=== PATIENT | male | born 1945 | race Caucasian/White ===

== ENCOUNTER 2017-12-28 13:37 | Outpatient (REF) | payer OTHER, SELFPAY ==
[2017-12-28 21:03] LABS: HCT 44.5 % (40.0-50.0); HGB 15.5 g/dL (13.5-17.5); Mean Corp. HGB Concentration 34.8 g/dL (32.0-36.0); Mean Corpuscular Hemoglobin 31.3 pg (27.0-33.0); Mean Corpuscular Volume 89.7 fL (80-95); Mean Platelet Volume 10.9 fL (8.0-11.0); Platelet Count 310 x1000/uL (130-400); RBC 4.96 m/cumm (4.50-6.00); RBC Distribution Width 13.9 % (11.8-14.1); White Blood Cell Count 9.33 k/cumm (4.4-10.8)
[2017-12-28 21:27] LABS: ALT 23 U/L (12-78); AST 25 U/L (15-37); Albumin 3.6 g/dL (3.4-5.0); Alkaline Phosphatase 67 U/L (46-116); Anion Gap 6.8 mmol/L (3-11); BUN 24 mg/dL (7-18); Bilirubin, Total 0.6 mg/dL (0.2-1.0); CO2 27.2 mmol/L (21.0-32.0); CREATININE 1.45 mg/dL (0.70-1.30); Calcium 8.7 mg/dL (8.5-10.1); Chloride 105 mmol/L (98-107); Cholesterol 158 mg/dL (50-200); Estimated GFR 47.98 (mL/min/1.73m2); Glucose 89 mg/dL (70-100); HDL Cholesterol 56 mg/dL (40-60); LDL CHOLESTEROL 92 mg/dL (<100); Potassium 4.3 mmol/L (3.5-5.1); Sodium 139 mmol/L (136-145); TSH 1.01 uIU/mL (0.358-3.74); Triglyceride 93 mg/dL (30-150)
[2017-12-28 21:36] LABS: Bilirubin, Direct 0.14 mg/dL (0.00-0.20)
== END 2017-12-28 13:38 ==
LOC: NCHCN 13:37
PROVIDERS: PCP Family Medicine; Visit Provider Family Medicine
DX: I10 Essential (primary) hypertension (principal); I26.99 Other pulmonary embolism without acute cor pulmonale; K22.70 Barrett's esophagus without dysplasia; E80.7 Disorder of bilirubin metabolism, unspecified; Z13.220 Encounter for screening for lipoid disorders; Z13.29 Encounter for screening for other suspected endocrine disorder
CPT/HCPCS: 80053; 80061; 80076; 83721; 85027; 84443

== ENCOUNTER 2018-01-10 02:08 | Outpatient (CLI) | payer OTHER, SELFPAY ==
--- NOTE | 2018-01-10 13:25 | MERGE_ITS ---
*[facility]* *[facility]* [address] [place] [address] Date of study: 01/10/2018 Transthoracic Echocardiography M-mode, complete 2D, complete spectral Doppler, and color Doppler *STUDY CONCLUSIONS* Summary: 1. Left ventricle: The cavity size was normal. Systolic function was normal. The estimated ejection fraction was 55-60%. Some parameters suggest diastolic dysfunction. There was no evidence of elevated ventricular filling pressure by Doppler parameters. 2. Aortic valve: There was mild regurgitation. 3. Mitral valve: There was moderate regurgitation. 4. Right ventricle: The cavity size was mildly dilated. Systolic function was normal. 5. Right atrium: The atrium was mildly dilated. 6. Atrial septum: No defect or patent foramen ovale was identified. 7. Tricuspid valve: There was moderate regurgitation. 8. Pulmonary arteries: Pulmonary systolic pressure was in the range of 30mm Hg to 40mm Hg. 9. Inferior vena cava: The vessel was patent and normal in size. The respirophasic diameter changes were in the normal range (greater than or equal to 50%), consistent with normal central venous pressure. *PATIENT PRESENTATION* Height: 193cm ((76in) ) S/D Pressure: 135 / 74 Weight: 95.3kg ((209.6lb) ) BSA: 2.27m^2 Test start time: 01:30 PM. Test stop time: 02:50 PM. PERFORMING Unknown ORDERING Nathanael Ochoa MD REFERRING Nathanael Ochoa MD PERFORMING [facility] PAINTER HAND RT La (R)(CT), [facility] REFERRING Md Don Brewer *PROCEDURE DATA* Procedure information: The patient was identified by two identifiers. This study was interpreted by [facility]. Pertinent images and digital data are archived for permanent storage and are available for subsequent review. No prior study was available for comparison. Study status: Routine. Transthoracic echocardiography. M-mode, complete 2D, complete spectral Doppler, and color Doppler. A Transthoracic Echocardiogram was performed. Scanning was performed from the parasternal, apical, subcostal, and suprasternal notch acoustic windows. Images were obtained using an [id number] cardiac ultrasound machine. Image quality was adequate. Study completion: The patient tolerated the procedure well. History: PMH: HTN. near syncope. *CARDIAC ANATOMY* Left ventricle: The cavity size was normal. Systolic function was normal. The estimated ejection fraction was 55-60%. The tissue Doppler parameters were abnormal. Some parameters suggest diastolic dysfunction. There was no evidence of elevated ventricular filling pressure by Doppler parameters. Aortic valve: Trileaflet. Doppler: There was no stenosis. There was mild regurgitation. VTI ratio of LVOT to aortic valve: 0.75. Valve area (VTI): 2.5cm^2. Indexed valve area (VTI): 1.1cm^2/m^2. Peak velocity ratio of LVOT to aortic valve: 0.72. Valve area (Vmax): 2.4cm^2. Indexed valve area (Vmax): 1.1cm^2/m^2. Mean velocity ratio of LVOT to aortic valve: 0.74. Valve area (Vmean): 2.5cm^2. Indexed valve area (Vmean): 1.1cm^2/m^2. Mean gradient (S): 3.2mm Hg. Peak gradient (S): 5.9mm Hg. Aorta: Aortic root: The aortic root was at upper normal limits. Ascending aorta: The ascending aorta was mildly dilated. Mitral valve: Doppler: There was no evidence for stenosis. There was moderate regurgitation. Valve area by pressure half-time: 3.5cm^2. Indexed valve area by pressure half-time: 1.5cm^2/m^2. Left atrium: The atrium was normal in size. Atrial septum: No defect or patent foramen ovale was identified. Right ventricle: The cavity size was mildly dilated. Systolic function was normal. Pulmonic valve: Doppler: There was no evidence for stenosis. There was mild regurgitation. Peak gradient (S): 2.6mm Hg. Tricuspid valve: Doppler: There was moderate regurgitation. Pulmonary artery: Poorly visualized. Pulmonary systolic pressure was in the range of 30mm Hg to 40mm Hg. Right atrium: The atrium was mildly dilated. Pericardium: There was no pericardial effusion. Systemic veins: Inferior vena cava: Well visualized. The vessel was patent and normal in size. The respirophasic diameter changes were in the normal range (greater than or equal to 50%), consistent with normal central venous pressure. Measurements Left ventricle Value Reference LV ID, ED, PLAX 5.1 cm 3.5 - 6.0 LV ID, ES, PLAX 3.9 cm 2.1 - 4.0 LV PW thickness, ED, PLAX 1.0 cm LV end-diastolic volume, 1-p A2C 81 ml LV ejection fraction, 1-p A2C 57 % LV end-diastolic volume, 1-p A4C 122 ml LV ejection fraction, 1-p A4C 51 % LV e', lateral 0.048 m/sec LV E/e', lateral 14 LV e', medial 0.042 m/sec LV E/e', medial 16 LV e', average 0.045 m/sec LV E/e', average 15 Ventricular septum Value Reference IVS thickness, ED, PLAX 1.1 cm LVOT Value Reference LVOT ID, A-P 2.1 cm LVOT area 3.3 cm^2 LVOT peak velocity, S 0.87 m/sec LVOT mean velocity, S 0.63 m/sec LVOT VTI, S 18.1 cm LVOT peak gradient, S 3.1 mm Hg LVOT mean gradient, S 1.8 mm Hg Stroke volume (SV), LVOT DP 60 ml Stroke index (SV/bsa), LVOT DP 26 ml/m^2 Aortic valve Value Reference Aortic valve peak velocity, S 1.2 m/sec Aortic valve mean velocity, S 0.85 m/sec Aortic valve VTI, S 24.1 cm Aortic mean gradient, S 3.2 mm Hg Aortic peak gradient, S 5.9 mm Hg VTI ratio, LVOT/AV 0.75 Aortic valve area, VTI 2.5 cm^2 Velocity ratio, peak, LVOT/AV 0.72 Aortic valve area, peak velocity 2.4 cm^2 Velocity ratio, mean, LVOT/AV 0.74 Aortic valve area, mean velocity 2.5 cm^2 Aortic valve area/bsa, mean velocity 1.1 cm^2/m^2 Aorta Value Reference Aortic root ID, ED 4.0 cm Ascending aorta ID, A-P, S 4.0 cm RVOT Value Reference RVOT VTI, S 13.2 cm Left atrium Value Reference LA ID, A-P, ES 3.4 cm LA ID/bsa, A-P 1.5 cm/m^2 <=2.2 LA area, ES, A4C 20.1 cm^2 8.8 - 23.4 LA area, ES, A2C 20 cm^2 LA volume/bsa, ES, 1-p A4C 28 ml/m^2 LA volume, ES, 2-p 56 ml LA volume/bsa, ES, 2-p 25 ml/m^2 LA/aortic root ratio 0.84 Mitral valve Value Reference Mitral E-wave peak velocity 0.67 m/sec Mitral A-wave peak velocity 0.83 m/sec Mitral deceleration time 218 ms 150 - 230 Mitral pressure half-time 63 ms Mitral E/A ratio, peak 0.81 Mitral valve area, PHT, DP 3.5 cm^2 Tricuspid valve Value Reference Tricuspid regurg peak velocity 2.8 m/sec Tricuspid peak RV-RA gradient 30.4 mm Hg Right atrium Value Reference RA area, ES, A4C (H) 20.8 cm^2 8.3 - 19.5 Pulmonic valve Value Reference Pulmonic peak gradient, S 2.6 mm Hg Legend: (L) and (H) rossy values outside specified reference range. I have personally reviewed the images and have reviewed and edited the reported findings. Electronically signed by Saroj Mckeon MD 01/10/2018 19:27
== END 2018-01-10 02:28 ==
PROVIDERS: PCP Family Medicine; Visit Provider Family Medicine
DX: I10 Essential (primary) hypertension (principal); R55 Syncope and collapse; I08.3 Combined rheumatic disorders of mitral, aortic and tricuspid valves; I51.7 Cardiomegaly
CPT/HCPCS: 93306

== ENCOUNTER 2019-02-18 16:37 | Outpatient (REF) | payer OTHER, SELFPAY ==
[2019-02-18 22:46] LABS: BUN 16 mg/dL (7-18); CREATININE 1.22 mg/dL (0.70-1.30); Calcium 9.4 mg/dL (8.5-10.1); Chloride 103 mmol/L (98-107); Estimated GFR 58.39 (mL/min/1.73m2); Glucose 96 mg/dL (70-100); Potassium 4.2 mmol/L (3.5-5.1); Sodium 142 mmol/L (136-145)
== END 2019-02-18 16:57 ==
LOC: NCHCN 16:37
PROVIDERS: PCP Family Medicine; Visit Provider Family Medicine
DX: I10 Essential (primary) hypertension (principal)
CPT/HCPCS: 80048

== ENCOUNTER 2021-09-02 20:09 | Outpatient (REF) | payer OTHER, SELFPAY ==
[2021-09-02 20:35] LABS: HGB 16.4 g/dL (13.5-17.5); MCH 29.7 pg (27.0-33.0); MCHC 34.2 % (32.0-36.0); MCV 87 fL (80-95); MPV 10.1 fL (8.0-11.0); Platelet Count 354 10^3/uL (130-400); RBC 5.52 10^6/uL (4.36-5.78); RDW 12.9 % (11.8-14.1); RDW-SD 40.9 fL; WBC 10.43 10^3/uL (4.4-10.8)
[2021-09-02 20:51] LABS: ALT 20 U/L (16-63); AST 17 U/L (15-37); Alkaline Phosphatase 77 U/L (46-116); Anion Gap 9.1 mmol/L (3-11); BUN 19 mg/dL (7-18); Bilirubin, Total 0.8 mg/dL (0.2-1.0); CO2 25.9 mmol/L (21.0-32.0); CREATININE 1.2 mg/dL (0.70-1.30); Calcium 9.5 mg/dL (8.5-10.1); Chloride 107 mmol/L (98-107); Estimated GFR 59.02 (mL/min/1.73m2); Glucose 100 mg/dL (74-106); Potassium 3.8 mmol/L (3.5-5.1); Sodium 142 mmol/L (136-145); Total Protein 7.6 g/dL (6.4-8.2)
== END 2021-09-02 20:10 | disposition home or self-care (01) ==
LOC: NCHCN 20:09
PROVIDERS: PCP Family Medicine; Visit Provider Family Medicine
DX: I10 Essential (primary) hypertension (principal); D64.9 Anemia, unspecified
CPT/HCPCS: 80053; 85027

== ENCOUNTER 2022-08-18 15:23 | Outpatient (REF) | payer MEDICARE, SELFPAY ==
[2022-08-18 21:29] LABS: Anion Gap 8.5 mmol/L (3-11); BUN 20 mg/dL (7-18); CO2 28.5 mmol/L (21.0-32.0); CREATININE 1.4 mg/dL (0.70-1.30); Calcium 9.7 mg/dL (8.5-10.1); Chloride 105 mmol/L (98-107); Estimated GFR 52.09 (mL/min/1.73m2); Glucose 95 mg/dL (74-106); Potassium 5.1 mmol/L (3.5-5.1); Sodium 142 mmol/L (136-145)
== END 2022-08-18 15:24 | disposition home or self-care (01) ==
LOC: NCHCN 15:23
PROVIDERS: PCP Family Medicine; Visit Provider Family Medicine
DX: I10 Essential (primary) hypertension (principal)
CPT/HCPCS: 80048